=== PATIENT | female | born 1965 | race Caucasian/White ===

== ENCOUNTER 2018-07-10 14:50 | Emergency (ER) | payer BC ==
[2018-07-10] MEDS ORDERED: 0.9 % SODIUM CHLORIDE 1000ML 1,000 ML IV PRN (15:11)
[2018-07-10] MEDS ORDERED: KETOROLAC 30 MG/ML VIAL IVP ONE (15:11)
--- NOTE | 2018-07-10 15:19 | Emergency Department Record ---
History of Present Illness - General Chief complaint: Flank Pain Stated complaint: RT FLANK PAIN Time Seen by Provider: 07/10/18 15:08 Source: Patient, RN notes reviewed Mode of Arrival: Ambulatory - History of Present Illness Initial comments: patient complains of right flank pain which started 2 days ago and worse with rotation of her body and no history of kidney stones Onset/Timin -: Days(s) Radiation: R flank Severity: Moderate Severity scale (1-10): 4 Quality: Aching Consistency: Constant, Intermittent Improves with: Medication Worsens with: None Patient : No Associated Symptoms: Denies other symptoms - Related Data Previous Rx's Medication Instructions Recorded Ciprofloxacin HCl [Cipro] 500 mg PO NOW #1 tablet 07/10/18 Naproxen [Naprosyn] 500 mg PO Q12H #20 tab.dr 07/10/18 Nitrofurantoin Macrocrystal 100 mg PO BID #20 capsule 07/10/18 [Macrodantin] Allergies Allergy/AdvReac Type Severity Reaction Status Date / Time sulfamethoxazole Allergy Severe SWELLING Verified 07/10/18 14:59 [From Bactrim] OF THE TONGUE trimethoprim [From Bactrim] Allergy Severe SWELLING Verified 07/10/18 14:59 OF THE TONGUE bacitracin Allergy Intermediate BLISTERS Verified 07/10/18 14:59 [From Neosporin ([id number])] bacitracin zinc Allergy Intermediate BLISTERS Verified 07/10/18 14:59 [From Neosporin ([id number])] neomycin sulfate Allergy Intermediate BLISTERS Verified 07/10/18 14:59 [From Neosporin ([id number])] polymyxin B Allergy Intermediate BLISTERS Verified 07/10/18 14:59 [From Neosporin ([id number])] ciprofloxacin Allergy Mild RASH Verified 07/10/18 16:29 Travel Screening - Travel/Exposure Within Last 30 Days Have you traveled within the last 30 days?: No - Travel/Exposure Within Last Year Have you traveled outside the [place] in the last year?: No - Additonal Travel Details Have you been exposed to anyone with a communicable illness?: No - Travel Symptoms Symptom Screening: None Review of Systems Reviewed: No additional complaints except as noted below Constitutional: Reports: As per HPI. Denies: Chills, Fever, Malaise, Night sweats, Weakness, Weight change Eyes: Reports: As per HPI. Denies: Eye discharge, Eye pain, Photophobia, Vision change ENT: Reports: As per HPI. Denies: Congestion, Dental pain, Ear pain, Epistaxis , Hearing loss, Throat pain Respiratory: Reports: As per HPI. Denies: Cough, Dyspnea, Hemoptysis, Stridor, Wheezes Cardiovascular: Reports: As per HPI. Denies: Arrhythmia, Chest pain, Dyspnea on exertion, Edema, Murmurs, Orthopnea, Palpitations, Paroxysmal nocturnal dyspnea, Rheumatic Fever, Syncope Endocrine: Reports: As per HPI. Denies: Fatigue, Heat or cold intolerance, Polydipsia, Polyuria Gastrointestinal: Reports: As per HPI. Denies: Abdominal pain, Constipation, Diarrhea, Hematemesis, Hematochezia, Melena, Nausea, Vomiting Genitourinary: Reports: As per HPI. Denies: Abnormal menses, Discharge, Dyspareunia, Dysuria, Frequency, Hematuria, Incontinence, Retention, Urgency Musculoskeletal: Reports: As per HPI, Back pain (right flank pain). Denies: Arthralgia, Gout, Joint swelling, Myalgia, Neck pain Skin: Reports: As per HPI. Denies: Bruising, Change in color, Change in hair/ nails, Lesions, Pruritus, Rash Neurological: Reports: As per HPI. Denies: Abnormal gait, Confusion, Headache, Numbness, Paresthesias, Seizure, Tingling, Tremors, Vertigo, Weakness Psychiatric: Reports: As per HPI. Denies: Anxiety, Auditory hallucinations, Depression, Homicidal thoughts, Suicidal thoughts, Visual hallucinations Hematological/Lymphatic: Reports: As per HPI. Denies: Anemia, Blood Clots, Easy bleeding, Easy bruising, Swollen glands Past Medical History - SOCIAL HISTORY Smoking Status: Current every day smoker Alcohol Use: Occasional Drug Use: None - RESPIRATORY Hx Respiratory Disorders: Yes Hx Asthma: Yes (well controlled) Hx Bronchitis: Yes Hx Sleep Apnea: Yes Hx of CPAP: Yes - CARDIOVASCULAR Hx Cardio Disorders: Yes Hx Hypertension: Yes - NEURO Hx Neuro Disorders: No - GI Hx GI Disorders: Yes Hx of Polyps: Yes - Hx Genitourinary Disorders: No Comment:: 2010 uterine ablation - ENDOCRINE Hx Endocrine Disorders: No - MUSCULOSKELETAL Hx Musculoskeletal Disorders: Yes Hx Arthritis: Yes (thumbs) - PSYCH Hx Psych Problems: No - HEMATOLOGY/ONCOLOGY Hx Hematology/Oncology Disorders: No Family Medical History Any Significant Family History?: No Family Hx Comment (NOT TO BE USED IN PLACE OF ITEMS BELOW): pt is adopted, unknown family history Physical Exam - General General Appearance: Alert, Oriented x3, Cooperative, No acute distress - Head Head exam: Normal inspection - Eye Eye exam: Normal appearance, PERRL Pupils: Normal accommodation - ENT ENT exam: Normal exam, Mucous membranes moist, Normal external ear exam, Normal orophraynx, TM's normal bilaterally Ear exam: Normal external inspection. negative: External canal tenderness Nasal Exam: Normal inspection. negative: Discharge, Sinus tenderness Mouth exam: Normal external inspection, Tongue normal Teeth exam: Normal inspection. negative: Dental caries Throat exam: Normal inspection. negative: Tonsillar erythema, Tonsillar exudate - Neck Neck exam: Normal inspection, Full ROM. negative: Tenderness - Respiratory Respiratory exam: Normal lung sounds bilaterally. negative: Respiratory distress - Cardiovascular Cardiovascular Exam: Regular rate, Normal rhythm, Normal heart sounds - GI/Abdominal GI/Abdominal exam: Soft, Normal bowel sounds, Tenderness (right flank pain worse with rotation of shoulders) - Rectal Rectal exam: Deferred - exam: Deferred - Extremities Extremities exam: Normal inspection, Full ROM, Normal capillary refill. negative: Tenderness - Back Back exam: Reports: Normal inspection, Full ROM. Denies: Muscle spasm, Rash noted, Tenderness - Neurological Neurological exam: Alert, Normal gait, Oriented X3, Reflexes normal - Psychiatric Psychiatric exam: Normal affect, Normal mood - Skin Skin exam: Dry, Intact, Normal color, Warm Course Vital Signs 07/10/18 15:04 Temperature 98.9 F Pulse Rate 85 Respiratory 20 Rate Blood Pressure 150/102 Pulse Ox 99 Medical Decision Making - Data Complexity MDM Data: Labs Ordered and/or Reviewed (UA shows wbc ), X-Ray Ordered and/or Reviewed (No kidney stones or hydro \nephrosis seen) - Lab Data Result diagrams: 07/10/18 15:15 07/10/18 15:15 Disposition Clinical Impression: UTI (urinary tract infection) Qualifiers: Urinary tract infection type: acute cystitis Hematuria presence: without hematuria Qualified Code(s): N30.00 - Acute cystitis without hematuria Disposition: Home, Self-Care Condition: (1) Good Instructions: Urinary Tract Infection in Women (ED) Additional Instructions: follow up with family Dr in 2-5 days Prescriptions: Ciprofloxacin HCl [Cipro] 500 mg PO NOW #1 tablet Naproxen [Naprosyn] 500 mg PO Q12H #20 tab. Nitrofurantoin Macrocrystal [Macrodantin] 100 mg PO BID #20 capsule Forms: Patient Portal Access Time of Disposition: 16:48 Quality - Quality Measures Quality Measures: N/A - Blood Pressure Screening Does Patient Have Any of the Following: No Blood Pressure Classification: Hypertensive Reading Systolic Measurement: 150 Diastolic Measurement: 102 Screening for High Blood Pressure: < Pre-Hypertensive BP, F/U Documented > [ G8950] Pre-Hypertensive Follow-up Interventions: Referral to alternative/primary care provider.
[2018-07-10 15:24] LABS: BASO % 0.4 % (0-6); GRAN % 60.9 % (47-80); HEMATOCRIT 44.1 % (35.0-47.0); HEMOGLOBIN 15.5 gm/dl (11.6-16.0); LYMPH % 25.7 % (16-45); MEAN CELL VOLUME 98.2 fl (81-97); MEAN CORPUSCULAR HEMOGLOBIN 34.5 pg (27-33); MEAN CORPUSCULAR HGB CONC 35.1 g/dl (32-36); MEAN PLATELET VOLUME 10.5 fl (7.4-10.4); PLATELET COUNT 234 K/uL (130-400); RED BLOOD COUNT 4.49 M/uL (3.80-5.40); RED CELL DISTRIBUTION WIDTH 12.9 % (11.5-14.5); URINE APPEARANCE CLEAR; URINE BILIRUBIN NEGATIVE (NEGATIVE); URINE BLOOD NEGATIVE (NEGATIVE); URINE COLOR YELLOW; URINE GLUCOSE (UA) NEGATIVE (NEGATIVE); URINE KETONE NEGATIVE (NEGATIVE); URINE LEUKOCYTE ESTERASE MODERATE (NEGATIVE); URINE NITRITE NEGATIVE (NEGATIVE); URINE PROTEIN NEGATIVE (NEGATIVE); URINE UROBILINOGEN 0.2 E.U./dL (0.20 - 1.00); WHITE BLOOD COUNT W/O DIFF 9.2 K/uL (4.2-12.2)
[2018-07-10 15:30] LABS: URINE EPITHELIAL CELLS 0 - 2 (FEW); URINE RBC NONE SEEN (NONE SEEN)
[2018-07-10 15:37] LABS: BLOOD UREA NITROGEN 18 mg/dL (6-20); CREATININE 0.7 mg/dL (0.5-0.9); EST GLOMERULAR FILTRATION RATE > 60 mL/min
[2018-07-10 15:40] LABS: GLUCOSE,RANDOM 142 mg/dL (74-109)
[2018-07-10] MEDS: CIPROFLOXACIN HCL 500 MG TABLET PO ONE ×2 (16:28→16:31)
[2018-07-10] MEDS ORDERED: NITROFURANTOIN MONO 100 MG CAPSULE PO ONE (16:31)
--- NOTE | 2018-07-12 12:50 | CT SCAN REPORT ---
EXAM: EMERGENCY CT SCAN OF THE ABDOMEN AND PELVIS WITHOUT CONTRAST HISTORY: RIGHT FLANK PAIN FOR TWO DAYS. CHOLECYSTECTOMY, GASTRIC BYPASS SURGERY, AND HERNIA REPAIR. TECHNIQUE: Axial CT scan of the abdomen and pelvis was performed without oral or IV contrast. Comparison: CT abdomen and pelvis 02/18/16. FINDINGS: Surgical clips in the gallbladder fossa again seen consistent with the history of cholecystectomy, and postop changes also seen in the region of the stomach and jejunum consistent with gastric bypass surgery. No definite intrarenal calculi identified on either side. No hydronephrosis or hydroureter is seen on either side as well. No definite ureteral calculus seen on either side and no bladder calculus evident. Very small periumbilical anterior abdominal wall hernia containing adipose tissue. This is smaller than before. Evaluation of the bowel and viscera is extremely limited without oral or IV contrast. Given this limitation, no definite hepatic, splenic, adrenal, pancreatic, or renal mass identified. Moderate diverticulosis in the sigmoid colon, but no diverticulitis evident. The appendix is visualized and appears negative with on appendicitis evident. Somewhat thick walled appearance of the bladder wall particularly anteriorly is probably just due to incomplete distention. Minor streaky atelectasis or infiltrate in the right middle lobe. No free intraperitoneal air or free intraperitoneal fluid identified. There is facet joint arthropathy in the lower lumbar spine and there is also degenerative disk disease at the lumbosacral interspace. IMPRESSION: 1. POSTOP CHOLECYSTECTOMY AND GASTRIC BYPASS SURGERY. 2. NO DEFINITE URINARY TRACT CALCULI OR HYDRONEPHROSIS EVIDENT. 3. THE APPENDIX IS SEEN AND IS NEGATIVE. NO FREE AIR OR FREE FLUID EVIDENT. 4. MILD DIVERTICULOSIS SIGMOID COLON, BUT NO DIVERTICULITIS EVIDENT. 5. DEGENERATIVE CHANGES LOWER LUMBAR SPINE. 6. QUITE SMALL PERIUMBILICAL ANTERIOR ABDOMINAL WALL HERNIA CONTAINING ADIPOSE TISSUE. THIS HAS DECREASED IN SIZE FROM 02/18/16. JOB NUMBER: [id number] [facility]
== END 2018-07-10 17:08 | disposition home or self-care (01) ==
LOC: ER 14:50
DX: N30.00 Acute cystitis without hematuria (principal); R10.9 Unspecified abdominal pain; I10 Essential (primary) hypertension; F17.210 Nicotine dependence, cigarettes, uncomplicated
CPT/HCPCS: 74176; 80048; 81001; 85025; 96374; 99284; J1885

== ENCOUNTER 2019-10-21 12:25 | Emergency (ER) | payer BC, OTHER ==
[2019-10-21] MEDS ORDERED: IBUPROFEN 600 MG TABLET PO ONE (12:49)
--- NOTE | 2019-10-21 12:54 | Emergency Department Record ---
History of Present Illness - General Chief complaint: Pain Time Seen by Provider: 10/21/19 12:31 Source: Patient Mode of Arrival: Ambulatory Limitations: No limitations - History of Present Illness Initial comments: 54 yo female presents with right shoulder and upper arm pain since yesterday. 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 She bent over to pull the child up and felt a pain. No deformity or swelling. No weakness. She has some sharp pain with certain movements. No swelling. She is a e business project manager. She does not feel that the pain limits her driving ability or safety. MD Complaint: Extremity pain, Joint pain Onset/Timin -: Days(s) Location: Right, Arm, Shoulder -: Yes Myalgia Severity scale (1-10): 1 Quality: Aching Consistency: Constant Improves with: Nothing Worsens with: Exertion, Walking Associated Symptoms: Denies other symptoms - Related Data Allergies Allergy/AdvReac Type Severity Reaction Status Date / Time sulfamethoxazole Allergy Severe SWELLING Verified 10/21/19 12:37 [From Bactrim] OF THE TONGUE trimethoprim [From Bactrim] Allergy Severe SWELLING Verified 10/21/19 12:37 OF THE TONGUE bacitracin Allergy Intermediate BLISTERS Verified 10/21/19 12:37 [From Neosporin ([id number])] bacitracin zinc Allergy Intermediate BLISTERS Verified 10/21/19 12:37 [From Neosporin ([id number])] neomycin sulfate Allergy Intermediate BLISTERS Verified 10/21/19 12:37 [From Neosporin ([id number])] polymyxin B Allergy Intermediate BLISTERS Verified 10/21/19 12:37 [From Neosporin ([id number])] ciprofloxacin Allergy Mild RASH Verified 10/21/19 12:37 Travel Screening - Travel/Exposure Within Last 30 Days Have you traveled within the last 30 days?: No Review of Systems Constitutional: Denies: Chills, Fever, Malaise, Weakness Eyes: Denies: Eye discharge ENT: Denies: Congestion, Throat pain Respiratory: Denies: Cough Cardiovascular: Denies: Chest pain, Palpitations, Syncope Endocrine: Denies: Fatigue Gastrointestinal: Denies: Abdominal pain, Diarrhea, Nausea, Vomiting Genitourinary: Denies: Dysuria, Retention, Urgency Musculoskeletal: Reports: Arthralgia, Myalgia Skin: Denies: Bruising, Change in color, Rash Neurological: Denies: Headache, Numbness, Tingling, Tremors, Weakness Psychiatric: Denies: Anxiety Hematological/Lymphatic: Denies: Easy bleeding, Easy bruising Past Medical History - SOCIAL HISTORY Smoking Status: Current every day smoker - RESPIRATORY Hx Respiratory Disorders: Yes Hx Asthma: Yes (well controlled) Hx Bronchitis: Yes Hx Sleep Apnea: Yes Hx of CPAP: Yes - CARDIOVASCULAR Hx Cardio Disorders: Yes Hx Hypertension: Yes - NEURO Hx Neuro Disorders: No - GI Hx GI Disorders: Yes Hx of Polyps: Yes - Hx Genitourinary Disorders: No Comment:: 2010 uterine ablation - ENDOCRINE Hx Endocrine Disorders: No - MUSCULOSKELETAL Hx Musculoskeletal Disorders: Yes Hx Arthritis: Yes (thumbs) - PSYCH Hx Psych Problems: No - HEMATOLOGY/ONCOLOGY Hx Hematology/Oncology Disorders: No Family Medical History Any Significant Family History?: No Family Hx Comment (NOT TO BE USED IN PLACE OF ITEMS BELOW): pt is adopted, unknown family history Physical Exam - General General Appearance: Alert, Oriented x3, Cooperative, No acute distress Limitations: No limitations - Head Head exam: Atraumatic - Eye Eye exam: Normal appearance, PERRL. negative: Conjunctival injection, Scleral icterus - ENT ENT exam: Normal exam Ear exam: Normal external inspection Nasal Exam: Normal inspection Mouth exam: Normal external inspection - Neck Neck exam: Normal inspection - Respiratory Respiratory exam: Normal lung sounds bilaterally. negative: Chest wall tenderness, Rhonchi, Stridor, Wheezes - Cardiovascular Cardiovascular Exam: Regular rate, Normal rhythm - Extremities Extremities exam: Normal inspection, Full ROM, Normal capillary refill, Tenderness, Other. negative: Joint swelling Image of Full Body: 1 - tender anterior upper arm, biceps tendon intact in function and on palpation, tender in the biceps muscle, full ROM without limitation or significant pain, full internal and external rotation, full flexion and extension. Normal inspection - Back Back exam: Reports: Normal inspection. 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 We discussed follow up in the next 10 days if not improving Disposition Disposition: Discharge Clinical Impression: Right shoulder strain Qualifiers: Encounter type: initial encounter Qualified Code(s): S46.911A - Strain of uns pecified muscle, fascia and tendon at shoulder and upper arm level, right arm, initial encounter Disposition: Home, Self-Care Condition: (1) Good Instructions: Shoulder Sprain (ED) Additional Instructions: Ice the shoulder and muscles 2-3 times daily Call your doctor for a recheck in the next week if any of the symptoms continue If the pain continues you may need additional tests or a referral to a specialist Tylenol or Motrin for your pain Forms: Patient Portal Access Time of Disposition: 13:15 Quality - Quality Measures Quality Measures: N/A - Blood Pressure Screening Does Patient Have Any of the Following: No Blood Pressure Classification: Pre-Hypertensive BP Reading Systolic Measurement: 136 Diastolic Measurement: 85 Screening for High Blood Pressure: < Pre-Hypertensive BP, F/U Documented > [G8950] Pre-Hypertensive Follow-up Interventions: Referral to alternative/primary care provider.
--- NOTE | 2019-10-21 13:23 | RADIOLOGY REPORT ---
EXAMINATION: Right Shoulder, Complete Minimum Two Views EXAM DATE: 10/21/2019 1:12 PM TECHNIQUE: AP, Grashey, and axillary INDICATION: pain after lifting a child on the bus COMPARISON: None ENCOUNTER: Initial FINDINGS: 4 views of the right shoulder show no evidence of fracture or dislocation. Alignment is anatomic. No degenerative changes are noted. IMPRESSION: Normal right shoulder. Dictated by: Teodoro Nunez MD on 10/21/2019 1:21 PM. .
== END 2019-10-21 14:09 | disposition home or self-care (01) ==
LOC: ER 12:25
DX: S46.911A Strain of unspecified muscle, fascia and tendon at shoulder and upper arm level, right arm, initial encounter (principal); X50.0XXA Overexertion from strenuous movement or load, initial encounter; Y93.F9 Activity, other caregiving; Y92.811 Bus as the place of occurrence of the external cause; Y99.0 Civilian activity done for income or pay; I10 Essential (primary) hypertension; F17.210 Nicotine dependence, cigarettes, uncomplicated
CPT/HCPCS: 99283